=== PATIENT | female | born 1955 | race Caucasian/White ===

== ENCOUNTER → 2019-11-03 | Outpatient (CLI) | payer MEDICARE ==
[2019-11-03 14:00] LABS: GLUCOMETER DEV NAME(LOC) PUC.1; GLUCOSE,POINT OF CARE 188 MG/DL (70-110)
== END | disposition home or self-care (01) ==
LOC: PUC 13:51
DX: R10.9 Unspecified abdominal pain (principal); I10 Essential (primary) hypertension; E11.9 Type 2 diabetes mellitus without complications